=== PATIENT | female | born 1955 | race Caucasian/White ===

== ENCOUNTER → 2016-08-16 | Outpatient (CLI) | payer OTHER ==
[~2016-08-16] MED LIST: BACTRIM DS TABL1 TAB PO; CRESTOR PO; PYRIDIUM PO
--- NOTE | ~2016-08-16 | ST ---
Unit #: [id number] #: [id number] Patient: MELY HARMON [id number] [address] [address] [id number] MR#: [id number] NAME: MELY HARMON. : 1955 SEX: F STUDY DATE/TIME: 08/16/2016 UNIT: CN ROOM: STUDY DESCRIPTION: Stress nuclear and ECG Attending Physician: Nate Dasilva M.D. Referring Physician: Nate Dasilva M.D. Primary Care Physician: Travis Tovar M.D. CARDIOLOGY REPORT INDICATION Hypertension, dyslipidemia, diabetes, family history of coronary disease, chest tightness, inability to exercise adequately. SUMMARY Patient received lexiscan intravenously while at rest. Patient experienced chest tightness during the study. Patient also received Technetium 99 Cardiolite 8.94 and 29.9 mCi at rest and stress respectively. Appropriate views were obtained. FINDINGS The heart rate increased from 85 to 103, and blood pressure increased 122/75 to 144/70. The resting ECG was normal. With stress there were no diagnostic ST shifts despite the chest tightness and shortness of breath. There were no significant dysrhythmias or heart block. Perfusion images demonstrate significant intentional artifact at rest, much less with stress. There is apical thinning both at rest and stress, likely breast attenuation artifact. Gated perfusion wall motion analysis demonstrates end-diastolic volume of 54 mL, ejection fraction greater than 65% with no wall motion abnormalities. Uptake if suboptimal with stress. Summed stress score is 0, summed difference scores is 0. IMPRESSION Artifact changes are noted. Otherwise normal stress nuclear study with no clear evidence of ischemia or infarction. Slight changes in the inferolateral wall and the distal anterior wall are likely artifact as noted. Dictated by... Phyllis Lynch/quinten TD: 08/17/2016 08:05 JOB #: [id number] Unit #: [id number] #: [id number] Patient: MELY HARMON CARDIOLOGY REPORT Page 1 of 1 X Walker Denson MD CARDIOLOGY REPORT
== END | disposition home or self-care (01) ==
LOC: CNUC 08:44
DX: R07.9 Chest pain, unspecified (principal); R68.84 Jaw pain; Z87.898 Personal history of other specified conditions
CPT/HCPCS: 78452; 93017; 93306; A9500; J2785